=== PATIENT | female | born 1990 | race Caucasian/White ===

== ENCOUNTER 2022-11-06 22:51 | Emergency (ER) | payer OTHER ==
[~2022-11-06] VITALS: Ht 170.2 cm; Wt 102.1 kg
[2022-11-06 23:21] VITALS: BP 113/64
--- NOTE | 2022-11-06 23:24 | NUR ---
TO LOBBY A/W BED AMBULATORY
[2022-11-07] MEDS ORDERED: NAPR-54 PO (04:36)
[2022-11-07] MEDS ORDERED: AMOX1TAB8 PO (04:36)
[2022-11-07] MEDS ORDERED: ACET-8905 PO (04:36)
== END 2022-11-07 02:01 | disposition left against medical advice (07) ==
LOC: MED 22:51
DX: S91.351A Open bite, right foot, initial encounter (principal); Z53.21 Procedure and treatment not carried out due to patient leaving prior to being seen by health care provider; W54.0XXA Bitten by dog, initial encounter; Y93.89 Activity, other specified; Y92.89 Other specified places as the place of occurrence of the external cause; Y99.8 Other external cause status
CPT/HCPCS: 99281

== ENCOUNTER 2022-11-07 03:00 | Emergency (ER) | payer OTHER ==
[~2022-11-07] VITALS: Ht 170.2 cm; Wt 102.1 kg
[2022-11-07 03:05] VITALS: BP 117/75
--- NOTE | 2022-11-07 03:08 | NUR ---
to lobby a/w bed ambulatory
--- NOTE | 2022-11-07 04:00 | NUR ---
PT IS HERE FOR THE DOG BITE ON THE LEFT FOOT. PT IS ALERT ORITEDX 4
--- NOTE | 2022-11-07 04:07 | NUR ---
pt to bed #4
--- NOTE | 2022-11-07 04:18 | NUR ---
PT WAS ASKED IF THE SHE WANTS TO REPORT THE DOG AND PT DECLINED.
[2022-11-07] MEDS ORDERED: BACITRACIN OINT 500 UNITS/GM PKT TP ONE (04:30)
[2022-11-07] MEDS ORDERED: HYDROcodone/APAP 5/325 MG 1 TAB TAB PO ONE (04:30)
[2022-11-07] MEDS ORDERED: AMOX1TAB8 PO (04:36)
[2022-11-07] MEDS ORDERED: NAPR-54 PO (04:36)
[2022-11-07] MEDS ORDERED: ACET-8905 PO (04:36)
[2022-11-07 05:43] VITALS: BP 117/75
--- NOTE | 2022-11-07 05:46 | NUR ---
Patient discharged with v/s stable. Written and verbal after care instructions given and explained. Patient verbalized understanding. Ambulatory with steady gait. All questions addressed prior to discharge. Advised to follow up with PMD. PT LEFT WITH HER BELONIGINGS AND SOME GAUZE.
== END 2022-11-07 05:43 | disposition home or self-care (01) ==
LOC: MED 03:00
DX: S91.331A Puncture wound without foreign body, right foot, initial encounter (principal); W54.0XXA Bitten by dog, initial encounter; Y93.89 Activity, other specified; Y92.89 Other specified places as the place of occurrence of the external cause; Y99.8 Other external cause status
CPT/HCPCS: 90471; 90715; 99283

== ENCOUNTER 2023-07-20 20:21 | Emergency (ER) | payer SELFPAY ==
[~2023-07-20 20:21] MED LIST: ACET-8905 PO; AMOX1TAB8 PO; NAPR-54 PO
[2023-07-20 21:40] VITALS: BP 112/77; PULSE 79; RESP 18; TEMP 97.8; O2SAT 99
== END 2023-07-20 21:40 | disposition left against medical advice (07) ==
LOC: MED 20:21
DX: K92.1 Melena (principal); Z53.21 Procedure and treatment not carried out due to patient leaving prior to being seen by health care provider

== ENCOUNTER 2024-05-24 23:09 | Emergency (ER) | payer OTHER ==
[~2024-05-24] VITALS: Ht 170.2 cm; Wt 120.3 kg
[~2024-05-24 23:09] MED LIST changes: +NAPR-337 PO; -NAPR-54 PO
[2024-05-24 23:11] VITALS: BP 131/86; PULSE 88; RESP 22; TEMP 97.3; O2SAT 97
[2024-05-24] MEDS: MORPHINE SULFATE 4 MG/ML SYR IM ONE (23:31)
[2024-05-24 23:37] LABS: APPEARANCE,URINE CLEAR (CLEAR); BILIRUBIN,URINE NEGATIVE (NEGATIVE); BLOOD, URINE NEGATIVE (NEGATIVE); COLOR,URINE YELLOW (YELLOW); LEUKOCYTE ESTERASE ,URINE NEGATIVE (NEGATIVE); NITRITE, URINE NEGATIVE (NEGATIVE); PROTEIN,URINE NEGATIVE (NEGATIVE); UGLUCOSE NEGATIVE (NEGATIVE); UROBILINOGEN,URINE 0.2 EU/dL (0.2 - 1)
[2024-05-24] MEDS ORDERED: ACET-8905 PO (23:39)
[2024-05-24 23:58] VITALS: BP 131/86; PULSE 88; RESP 22; TEMP 97.3; O2SAT 97
== END 2024-05-24 23:58 | disposition home or self-care (01) ==
LOC: MED 23:09
DX: M54.50 Low back pain, unspecified (principal); R03.0 Elevated blood-pressure reading, without diagnosis of hypertension; F17.200 Nicotine dependence, unspecified, uncomplicated; Z79.899 Other long term (current) drug therapy
CPT/HCPCS: 81003; 81025; 96372; 99283; J2270

== ENCOUNTER 2024-06-28 01:17 | Emergency (ER) | payer OTHER ==
[~2024-06-28] VITALS: Ht 170.2 cm; Wt 108.9 kg
[2024-06-28 01:26] VITALS: BP 121/75; PULSE 94; RESP 18; TEMP 98.1; O2SAT 99
[2024-06-28 02:38] LABS: ANION GAP 14.8 (8-16); CALCIUM 8.5 mg/dL (8.5-10.1); CARBON DIOXIDE 25.4 mmol/L (21-32); CREATININE 0.7 mg/dL (0.6-1.3); POTASSIUM 3.2 mmol/L (3.5-5.1)
[2024-06-28 02:44] LABS: ALANINE AMINOTRANSFERASE 44 U/L (12-78); ALBUMIN 3.3 g/dL (3.4-5.0); ALCOHOL, BLOOD 242 mg/dL (<10); ALKALINE PHOSPHATASE 84 U/L (50-136); ASPARTATE AMINOTRANSFERASE 30 U/L (15-37); BILIRUBIN,DIRECT 0.1 mg/dL (0.0-0.3); TOTAL BILIRUBIN 0.2 mg/dL (0.0-1.0); TOTAL PROTEIN, SERUM 7.6 g/dL (6.4-8.2)
[2024-06-28 02:46] LABS: SALICYLATE < 2.8 mg/dL (2.8-20.0)
[2024-06-28 02:53] LABS: BASOPHILS # (AUTO) 0.1 K/uL (0.00-0.22); BASOPHILS % (AUTO) 0.4 % (0.0-2.0); EOSINOPHILS # (AUTO) 0.4 K/uL (0-0.4); EOSINOPHILS % (AUTO) 3.1 % (0.0-4.0); HEMATOCRIT 43.5 % (36-48); HEMOGLOBIN 14.3 g/dL (12.0-16.0); LYMPHOCYTES # (AUTO) 2.7 K/uL (2.5-16.5); LYMPHOCYTES % (AUTO) 23.2 % (20.5-51.1); MEAN CORPUSCULAR HEMOGLOBIN 30 pg (27-31); MEAN CORPUSCULAR HGB CONC 33 g/dL (33-37); MEAN CORPUSCULAR VOLUME 89.5 fL (80-94); MONOCYTES # (AUTO) 0.5 K/uL (0.8-1.0); MONOCYTES % (AUTO) 4.5 % (1.7-9.3); NEUTROPHILS # (AUTO) 8.1 K/uL (1.8-7.7); NEUTROPHILS % (AUTO) 68.8 % (42.2-75.2); PLATELET COUNT (AUTO) 385 K/uL (140-450); RED BLOOD CELL COUNT(AUTO) 4.86 MIL/uL (4.20-5.40); RED CELL DISTRIBUTION WIDTH 15.3 % (11.6-13.7); WHITE BLOOD COUNT (AUTO) 11.8 K/uL (4.8-10.8)
[2024-06-28 03:40] VITALS: BP 99/59; PULSE 86; RESP 20
[2024-06-28 03:42] VITALS: O2SAT 94
== END 2024-06-28 04:51 | disposition home or self-care (01) ==
LOC: MED 01:17
DX: T40.421A Poisoning by tramadol, accidental (unintentional), initial encounter (principal); T48.1X1A Poisoning by skeletal muscle relaxants [neuromuscular blocking agents], accidental (unintentional), initial encounter; Z79.899 Other long term (current) drug therapy; Y92.89 Other specified places as the place of occurrence of the external cause
CPT/HCPCS: 36415; 80048; 80076; 85025; 99283; G0480; G0482